=== PATIENT | male | born 1995 | race African-American/Black ===

== ENCOUNTER 2016-10-28 06:11 | Emergency (ER) | payer OTHER ==
--- NOTE | 2016-10-28 08:03 | EDDOCDS ---
Physician Documentation [facility] Name: Codie Cardoso Age: 20 yrs Sex: Male : 1995 Arrival Date: 10/28/2016 Time: 06:11 Bed I10 / 23 Private MD: Disposition: 10/28/16 07:48 Discharged to Home/Self Care. Impression: Conjunctivitis - bilateral, bacterial. - Condition is Stable. - Discharge Instructions: Conjunctivitis (Viral and Bacterial). - Prescriptions for ofloxacin 0.3 % Ophthalmic drops - instill 1 drop by OPHTHALMIC route 4 times per day for 7 days; 1 bottle. - Medication Reconciliation, Local Pharmacy Hours form. - Follow up: Keenan Roberts [facility]; When: Call to arrange an appointment; Reason: Recheck today's complaints, Continuance of care. Follow up: Saurav Mancuso; When: As needed; Reason: Recheck today's complaints. - Problem is new. - Symptoms are unchanged. - Notes: recommend recheck in 48 hrs. use drops as directed, stop other drops. return if worsening condition Historical: - Allergies: no known allergies; - Home Meds: 1. antibiotic eye drops 2. Patanol Unknown Opht Unknown - PMHx: none; - PSHx: none; - Social history: Smoking status: Patient states was never smoker of tobacco. No barriers to communication noted, The patient speaks fluent Greenlandic, Speaks appropriately for age. - Family history: Not pertinent. - : The pt / caregiver states he / she is not on anticoagulants. Home medication list is obtained from the patient. - Exposure Risk Screening:: None identified. Vital Signs: 10/28 06:21 BP 144 / 67; Pulse 46; Resp 18; Temp 97.1(O); Pulse Ox 100% on R/A; Weight 106.59 kg / kc3 234.99 lbs; Height 6 ft. (182.88 cm); Pain 5/10; 08:01 BP 138 / 85; Pulse 56; Resp 18; Temp 97.7; Pulse Ox 100% ; Pain 4/10; hs1 06:21 Body Mass Index 31.87 (106.59 kg, 182.88 cm) kc3 Visual Acuity: 07:24 Left Eye Visual acuity 20/40, ; Right Eye Visual acuity 20/50, ; Both Eyes Visual dls acuity 20/30; Without Lenses; MDM: 07:21 Visual Acuity ordered. ar2 07:52 Financial registration complete. mm15 Signatures: Shirley Austin RN RN dls Santosh Granger PA-C PA-C ar2 Zoë Vásquez RN RN hs1 Carolyn Jean mm15 Maggy Mancuso RN RN kc3 The chart was reviewed and I authenticate all verbal orders and agree with the evaluation and treatment provided.Corrections: (The following items were deleted from the chart) 06:26 06:24 Home Meds: none; kc3 kc3 MTDD
--- NOTE | 2016-10-28 08:03 | EDDOCDS ---
Nurse's Notes [facility] Name: Codie Cardoso Age: 20 yrs Sex: Male : 1995 Arrival Date: 10/28/2016 Time: 06:11 Bed I10 / 23 Private MD: Diagnosis: Conjunctivitis-bilateral, bacterial Presentation: 10/28 06:22 Presenting complaint: Patient states: seen at [place] and with pink eye in both kc3 eyes. Pt given eye drops and told to come here if not better. Mechanism of Injury: No Mechanism of Injury. Pt reports mild blurring to right eye. . Adult Sepsis Screening: The patient does not have new or worsening altered mentation. Patient's respiratory rate is less than 22. Systolic blood pressure is greater than 100. Patient has a qSOFA score of 0- Negative Sepsis Screen. Suicide/Homicide risk assessment- the patient denies having any suicidal and/or homicidal ideations and does not present with any other emotional, behavioral or mental health complaints. 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 Transition of care: patient was not received from another setting of care. 06:22 Acuity: ANTONIO Level 4 kc3 06:22 Method Of Arrival: Walkin/Carried/Asstd kc3 Triage Assessment: 06:24 General: Appears in no apparent distress, comfortable. Pain: Location: right eye and kc3 left eye Pain currently is 5 out of 10 on a pain scale. HIV screening NA for this visit Offered previously. EENT: Eyes are tearing on right eye and left eye Sclera/Cornea are reddened in right eye and left eye. Historical: - Allergies: no known allergies; - Home Meds: 1. antibiotic eye drops 2. Patanol Unknown Opht Unknown - PMHx: none; - PSHx: none; - Social history: Smoking status: Patient states was never smoker of tobacco. No barriers to communication noted, The patient speaks fluent Greenlandic, Speaks appropriately for age. - Family history: Not pertinent. - : The pt / caregiver states he / she is not on anticoagulants. Home medication list is obtained from the patient. - Exposure Risk Screening:: None identified. Screenin:09 Screening information is obtained from the patient. Fall risk: No risks identified. dls Assistance ADL's: requires no assistance with activities of daily living. Abuse/DV Screen: The patient / caregiver reports he/she is: not in a situation that causes fear, pain or injury. Nutritional screening: No deficits noted. Advance Directives: Currently, there is no health care proxy. There is no active DNR order. There is no living will. There is no Power of Cell Repairer. Advance directive information has not previously been placed in an [facility] medical record. home support is adequate. Assessment: 07:08 General: Pt brought into exam room bilateral sclera red with drainage pt states right dls worse than the left can barely open his eyes.. 07:59 General: Appears uncomfortable, eyes swollen and reddened. Patient aware of follow up hs1 plan and continuing with new eye drops. No questions asked. No needs noted. . EENT: Eyes are tearing on left eye and right eye Sclera/Cornea are reddened in right eye and left eye. Respiratory: No deficits noted. Derm: Skin is pink, warm & dry. normal. Vital Signs: 06:21 BP 144 / 67; Pulse 46; Resp 18; Temp 97.1(O); Pulse Ox 100% on R/A; Weight 106.59 kg; kc3 Height 6 ft. (182.88 cm); Pain 5/10; 08:01 BP 138 / 85; Pulse 56; Resp 18; Temp 97.7; Pulse Ox 100% ; Pain 4/10; hs1 06:21 Body Mass Index 31.87 (106.59 kg, 182.88 cm) [facility] Vitals: 06:21 Log In Time: October 28, 2016 at 06:21. [facility] Visual Acuity: 07:24 Left Eye Visual acuity 20/40, ; Right Eye Visual acuity 20/50, ; Both Eyes Visual dls acuity 20/30; Without Lenses; ED Course: 06:13 Patient visited by Michelle Hernandez Reg. hs2 06:13 Patient moved to Waiting hs2 06:24 Triage Initiated kc3 06:34 Patient moved to MTA Wait kc3 07:07 Patient moved to I10 / 23 dls 07:08 Patient visited by Shirley Austin RN. dls 07:09 The patient / caregiver is instructed regarding the plan of care and ED course. dls 07:21 Santosh Granger PA-C is PHCP. ar2 07:21 Favio Padilla MD is Attending Physician. ar2 07:21 Patient visited by Santosh Granger PA-C. ar2 07:46 Keenan Roberts [facility] is Referral Physician. ar2 07:47 Saurav Mancuso is Referral Physician. ar2 08:00 No IV's were initiated during this patient's visit. No procedures done that require hs1 assistance. Order Results: There are currently no results for this order. Outcome: 07:48 Discharge ordered by Provider. ar2 08:00 Discharge Assessment: Patient awake, alert and oriented x 3. No cognitive and/or hs1 functional deficits noted. Patient verbalized understanding of disposition instructions. patient administered narcotics - no. The following High Risk Discharge criteria are identified: None. Discharged to home ambulatory. Condition: stable. Discharge instructions given to patient, Instructed on discharge instructions, follow up and referral plans. medication usage, safety practices, Demonstrated understanding of instructions, medications, Pt was receptive of discharge instructions/ teaching. Prescriptions given X 1. No special radiology studies were completed. Property sent home with patient. 08:01 Patient left the ED. hs1 Signatures: Shirley Austin RN RN dls Santosh Granger PA-C PA-C ar2 Zoë Vásquez RN RN hs1 Maggy Mancuso RN RN kc3 Michelle Hernandez, Reg Reg hs2 Corrections: (The following items were deleted from the chart) 06:26 06:24 Home Meds: none; susanne chaves3 MTDD
--- NOTE | 2016-10-30 09:03 | EDDOCDS ---
Physician Documentation [facility] Name: Codie Cardoso Age: 20 yrs Sex: Male : 1995 Arrival Date: 10/28/2016 Time: 06:11 Bed I10 / 23 Private MD: Disposition: 10/28/16 07:48 Discharged to Home/Self Care. Impression: Conjunctivitis - bilateral, bacterial. - Condition is Stable. - Discharge Instructions: Conjunctivitis (Viral and Bacterial). - Prescriptions for ofloxacin 0.3 % Ophthalmic drops - instill 1 drop by OPHTHALMIC route 4 times per day for 7 days; 1 bottle. - Medication Reconciliation, Local Pharmacy Hours form. - Follow up: Keenan Roberts [facility]; When: Call to arrange an appointment; Reason: Recheck today's complaints, Continuance of care. Follow up: Saurav Mancuso; When: As needed; Reason: Recheck today's complaints. - Problem is new. - Symptoms are unchanged. - Notes: recommend recheck in 48 hrs. use drops as directed, stop other drops. return if worsening condition Historical: - Allergies: no known allergies; - Home Meds: 1. antibiotic eye drops 2. Patanol Unknown Opht Unknown - PMHx: none; - PSHx: none; - Social history: Smoking status: Patient states was never smoker of tobacco. No barriers to communication noted, The patient speaks fluent Kinyarwanda, Speaks appropriately for age. - Family history: Not pertinent. - : The pt / caregiver states he / she is not on anticoagulants. Home medication list is obtained from the patient. - Exposure Risk Screening:: None identified. Vital Signs: 10/28 06:21 BP 144 / 67; Pulse 46; Resp 18; Temp 97.1(O); Pulse Ox 100% on R/A; Weight 106.59 kg / kc3 234.99 lbs; Height 6 ft. (182.88 cm); Pain 5/10; 08:01 BP 138 / 85; Pulse 56; Resp 18; Temp 97.7; Pulse Ox 100% ; Pain 4/10; hs1 06:21 Body Mass Index 31.87 (106.59 kg, 182.88 cm) kc3 Visual Acuity: 07:24 Left Eye Visual acuity 20/40, ; Right Eye Visual acuity 20/50, ; Both Eyes Visual dls acuity 20/30; Without Lenses; MDM: 07:21 Visual Acuity ordered. ar2 07:52 Financial registration complete. mm15 08:17 [facility] Payment Agreement was scanned into [employer] and attached to record. mm15 Signatures: Shirley Austin RN RN dls Santosh Granger, PAMansoorC PA-C ar2 Zoë Vásquez RN RN hs1 Carolyn Jean mm15 Maggy Mancuso RN RN kc3 The chart was reviewed and I authenticate all verbal orders and agree with the evaluation and treatment provided.Corrections: (The following items were deleted from the chart) 06:26 06:24 Home Meds: none; kc3 kc3 Attachments: 08:17 [facility] Payment Agreement mm15 Chart Complete MTDD
--- NOTE | 2016-10-30 09:03 | EDDOCDS ---
Nurse's Notes [facility] Name: Codie Cardoso Age: 20 yrs Sex: Male : 1995 Arrival Date: 10/28/2016 Time: 06:11 Bed I10 / 23 Private MD: Diagnosis: Conjunctivitis-bilateral, bacterial Presentation: 10/28 06:22 Presenting complaint: Patient states: seen at [place] and with pink eye in both kc3 eyes. Pt given eye drops and told to come here if not better. Mechanism of Injury: No Mechanism of Injury. Pt reports mild blurring to right eye. . Adult Sepsis Screening: The patient does not have new or worsening altered mentation. Patient's respiratory rate is less than 22. Systolic blood pressure is greater than 100. Patient has a qSOFA score of 0- Negative Sepsis Screen. Suicide/Homicide risk assessment- the patient denies having any suicidal and/or homicidal ideations and does not present with any other emotional, behavioral or mental health complaints. 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 Transition of care: patient was not received from another setting of care. 06:22 Acuity: ANTONIO Level 4 kc3 06:22 Method Of Arrival: Walkin/Carried/Asstd kc3 Triage Assessment: 06:24 General: Appears in no apparent distress, comfortable. Pain: Location: right eye and kc3 left eye Pain currently is 5 out of 10 on a pain scale. HIV screening NA for this visit Offered previously. EENT: Eyes are tearing on right eye and left eye Sclera/Cornea are reddened in right eye and left eye. Historical: - Allergies: no known allergies; - Home Meds: 1. antibiotic eye drops 2. Patanol Unknown Opht Unknown - PMHx: none; - PSHx: none; - Social history: Smoking status: Patient states was never smoker of tobacco. No barriers to communication noted, The patient speaks fluent Israeli, Speaks appropriately for age. - Family history: Not pertinent. - : The pt / caregiver states he / she is not on anticoagulants. Home medication list is obtained from the patient. - Exposure Risk Screening:: None identified. Screenin:09 Screening information is obtained from the patient. Fall risk: No risks identified. dls Assistance ADL's: requires no assistance with activities of daily living. Abuse/DV Screen: The patient / caregiver reports he/she is: not in a situation that causes fear, pain or injury. Nutritional screening: No deficits noted. Advance Directives: Currently, there is no health care proxy. There is no active DNR order. There is no living will. There is no Power of Claim Technician. Advance directive information has not previously been placed in an [facility] medical record. home support is adequate. Assessment: 07:08 General: Pt brought into exam room bilateral sclera red with drainage pt states right dls worse than the left can barely open his eyes.. 07:59 General: Appears uncomfortable, eyes swollen and reddened. Patient aware of follow up hs1 plan and continuing with new eye drops. No questions asked. No needs noted. . EENT: Eyes are tearing on left eye and right eye Sclera/Cornea are reddened in right eye and left eye. Respiratory: No deficits noted. Derm: Skin is pink, warm & dry. normal. Vital Signs: 06:21 BP 144 / 67; Pulse 46; Resp 18; Temp 97.1(O); Pulse Ox 100% on R/A; Weight 106.59 kg; kc3 Height 6 ft. (182.88 cm); Pain 5/10; 08:01 BP 138 / 85; Pulse 56; Resp 18; Temp 97.7; Pulse Ox 100% ; Pain 4/10; hs1 06:21 Body Mass Index 31.87 (106.59 kg, 182.88 cm) [facility] Vitals: 06:21 Log In Time: October 28, 2016 at 06:21. [facility] Visual Acuity: 07:24 Left Eye Visual acuity 20/40, ; Right Eye Visual acuity 20/50, ; Both Eyes Visual dls acuity 20/30; Without Lenses; ED Course: 06:13 Patient visited by Michelle Hernandez Reg. hs2 06:13 Patient moved to Waiting hs2 06:24 Triage Initiated kc3 06:34 Patient moved to MTA Wait kc3 07:07 Patient moved to I10 / 23 dls 07:08 Patient visited by Shirley Austin RN. dls 07:09 The patient / caregiver is instructed regarding the plan of care and ED course. dls 07:21 Santosh Granger PA-C is PHCP. ar2 07:21 Favio Padilla MD is Attending Physician. ar2 07:21 Patient visited by Santosh Granger PA-C. ar2 07:46 Keenan Roberts [facility] is Referral Physician. ar2 07:47 Saurav Mancuso is Referral Physician. ar2 08:00 No IV's were initiated during this patient's visit. No procedures done that require hs1 assistance. 08:17 [facility] Payment Agreement was scanned into [employer] and attached to record. mm15 08:42 Patient name changed from Codie\S\\S\Cardoso\S\ to Codie\S\ \S\Cardoso. EDMS Order Results: There are currently no results for this order. Outcome: 07:48 Discharge ordered by Provider. ar2 08:00 Discharge Assessment: Patient awake, alert and oriented x 3. No cognitive and/or hs1 functional deficits noted. Patient verbalized understanding of disposition instructions. patient administered narcotics - no. The following High Risk Discharge criteria are identified: None. Discharged to home ambulatory. Condition: stable. Discharge instructions given to patient, Instructed on discharge instructions, follow up and referral plans. medication usage, safety practices, Demonstrated understanding of instructions, medications, Pt was receptive of discharge instructions/ teaching. Prescriptions given X 1. No special radiology studies were completed. Property sent home with patient. 08:01 Patient left the ED. hs1 Signatures: [facility] Shirley Austin RN RN dls Santosh Granger PA-C PA-C ar2 Zoë Vásquez RN RN hs1 Carolyn Jean mm15 Maggy Mancuso RN RN kc3 Michelle Hernandez, Reg Reg hs2 Corrections: (The following items were deleted from the chart) 06:26 06:24 Home Meds: none; susanne skinner Chart Complete MTDD
--- NOTE | 2016-10-30 09:03 | EDDOCDS ---
Physician Documentation [facility] Name: Codie Cardoso Age: 20 yrs Sex: Male : 1995 Arrival Date: 10/28/2016 Time: 06:11 Bed I10 / 23 Private MD: Disposition: 10/28/16 07:48 Discharged to Home/Self Care. Impression: Conjunctivitis - bilateral, bacterial. - Condition is Stable. - Discharge Instructions: Conjunctivitis (Viral and Bacterial). - Prescriptions for ofloxacin 0.3 % Ophthalmic drops - instill 1 drop by OPHTHALMIC route 4 times per day for 7 days; 1 bottle. - Medication Reconciliation, Local Pharmacy Hours form. - Follow up: Keenan Roberts [facility]; When: Call to arrange an appointment; Reason: Recheck today's complaints, Continuance of care. Follow up: Saurav Mancuso; When: As needed; Reason: Recheck today's complaints. - Problem is new. - Symptoms are unchanged. - Notes: recommend recheck in 48 hrs. use drops as directed, stop other drops. return if worsening condition Historical: - Allergies: no known allergies; - Home Meds: 1. antibiotic eye drops 2. Patanol Unknown Opht Unknown - PMHx: none; - PSHx: none; - Social history: Smoking status: Patient states was never smoker of tobacco. No barriers to communication noted, The patient speaks fluent Latvian, Speaks appropriately for age. - Family history: Not pertinent. - : The pt / caregiver states he / she is not on anticoagulants. Home medication list is obtained from the patient. - Exposure Risk Screening:: None identified. Vital Signs: 10/28 06:21 BP 144 / 67; Pulse 46; Resp 18; Temp 97.1(O); Pulse Ox 100% on R/A; Weight 106.59 kg / kc3 234.99 lbs; Height 6 ft. (182.88 cm); Pain 5/10; 08:01 BP 138 / 85; Pulse 56; Resp 18; Temp 97.7; Pulse Ox 100% ; Pain 4/10; hs1 06:21 Body Mass Index 31.87 (106.59 kg, 182.88 cm) kc3 Visual Acuity: 07:24 Left Eye Visual acuity 20/40, ; Right Eye Visual acuity 20/50, ; Both Eyes Visual dls acuity 20/30; Without Lenses; MDM: 07:21 Visual Acuity ordered. ar2 07:52 Financial registration complete. mm15 08:17 [facility] Payment Agreement was scanned into [employer] and attached to record. mm15 Signatures: Shirley Austin RN RN dls Santosh Granger, PAMansoorC PA-C ar2 Zoë Vásquez RN RN hs1 Carolyn Jean mm15 Maggy Mancuso RN RN kc3 The chart was reviewed and I authenticate all verbal orders and agree with the evaluation and treatment provided.Corrections: (The following items were deleted from the chart) 06:26 06:24 Home Meds: none; kc3 kc3 Attachments: 08:17 [facility] Payment Agreement mm15 Chart Complete MTDD
== END 2016-10-28 08:01 | disposition home or self-care (01) ==
LOC: M ED 06:11
DX: H10.33 Unspecified acute conjunctivitis, bilateral (principal)

== ENCOUNTER 2016-12-26 07:19 | Emergency (ER) | payer OTHER ==
[~2016-12-26] VITALS: Ht 182.9 cm; Wt 106.6 kg
[2016-12-26] MEDS: NS 1,000 ML IV ONE (10:09)
[2016-12-26] MEDS: KETOROLAC 30 MG/ML VIAL (J1885) IV ONE (10:10)
[2016-12-26] MEDS: ONDANSETRON 4MG/2ML VIAL (J2405) IV ONE (10:10)
[2016-12-26 10:31] LABS: BASO # 0.1 K/mm3 (0.0-0.2); EOS # 0.5 K/mm3 (0.0-0.50); EOS % 8.2 % (0.0-3.0); LARGE UNSTAINED CELL # 0.2 K/mm3 (0.0-0.4); LYMPH # 2.7 K/mm3 (1.5-6.5); LYMPH % 48.6 % (24.0-44.0); MEAN CORPUSCULAR VOLUME 89.9 fl (80.0-96.0); MONO # 0.3 K/mm3 (0.0-0.8); MONO % 5.5 % (0.0-5.0); NEUTROPHILS # 1.9 K/mm3 (1.8-7.7); NEUTROPHILS % 33.8 % (36.0-66.0); PLATELET COUNT, AUTOMATED 266 k/mm3 (150-450); RED CELL DISTRIBUTION WIDTH 11.7 % (11.5-14.5); WHITE BLOOD COUNT 5.6 K/mm3 (4.0-10.0)
[2016-12-26 10:33] LABS: ALBUMIN 4.3 GM/DL (3.2-5.2); ALBUMIN/GLOBULIN RATIO 1.05 (1.00-1.93); ALKALINE PHOSPHATASE 69 U/L (45-117); ALT/SGPT 26 U/L (12-78); ANION GAP 7 MEQ/L (8-16); AST/SGOT 24 U/L (15-37); BILIRUBIN,TOTAL 0.5 MG/DL (0.2-1.0); BLOOD UREA NITROGEN 15 MG/DL (7-18); CARBON DIOXIDE LEVEL 28 MEQ/L (21-32); CHLORIDE LEVEL 104 MEQ/L (98-107); CREATININE FOR GFR 1.06 MG/DL (0.70-1.30); GLOMERULAR FILTRATION RATE > 60.0 (>60); GLUCOSE, FASTING 85 MG/DL (70-105); POTASSIUM SERUM 4.3 MEQ/L (3.5-5.1); SODIUM LEVEL 139 MEQ/L (136-145); TOTAL PROTEIN 8.4 GM/DL (6.4-8.2)
[2016-12-26 10:52] LABS: MEAN CORPUSCULAR HGB CONC 36.4 g/dl (32.0-36.5)
[2016-12-26] MEDS ORDERED: ZOFR4TAB3 PO (11:32)
[2016-12-26] MEDS ORDERED: KETO10TAB PO (11:32)
[2016-12-26 11:48] VITALS: BP 125/71
--- NOTE | 2016-12-26 12:51 | REP ---
REASON FOR EXAM: Flank pain. COMPARISON: None. The lung bases are clear. Limited aeration of the solid intraabdominal organs and gallbladder show no gross abnormalities. There are no choleliths. Limited evaluation of the pancreas and adrenal glands show no gross abnormalities. There is no nephroureterolithiasis, hydronephrosis, or hydroureter. There are no urinary bladder calcifications. There is a single left hemipelvic phlebolith. No free fluid or free air is seen in the abdomen or pelvis. The intrapelvic and intraabdominal bowel loops and their mesenteries, although seen in a limited fashion, appear to be within normal limits. Bone window technique throughout the exam show the osseous structures to be within normal limits. IMPRESSION: CT findings, as described above, are within normal limits. Signed by Stewart Lanza DO 12/26/2016 02:24 P
== END 2016-12-26 11:52 | disposition home or self-care (01) ==
LOC: M ED 09:37
DX: R10.9 Unspecified abdominal pain (principal); R11.0 Nausea
CPT/HCPCS: 36415; 74176; 80053; 81001; 83690; 85025; 87086; 96374; 96375; 99283; J1885; J2405

== ENCOUNTER 2017-01-01 05:03 | Emergency (ER) | payer OTHER ==
[~2017-01-01] VITALS: Ht 182.9 cm; Wt 108.9 kg
[~2017-01-01 05:03] MED LIST: KETO10TAB PO; ZOFR4TAB3 PO
[2017-01-01 05:08] VITALS: BP 160/73
[2017-01-01 06:22] LABS: BASO # 0.1 K/mm3 (0.0-0.2); BASO % 1.6 % (0.0-1.0); EOS # 0.6 K/mm3 (0.0-0.50); EOS % 10.6 % (0.0-3.0); LARGE UNSTAINED CELL # 0.1 K/mm3 (0.0-0.4); LARGE UNSTAINED CELL % 2.4 % (0.0-4.0); LYMPH # 2.4 K/mm3 (1.5-6.5); LYMPH % 42.3 % (24.0-44.0); MEAN CORPUSCULAR HEMOGLOBIN 31.9 pg (27.0-33.0); MEAN CORPUSCULAR HGB CONC 35.8 g/dl (32.0-36.5); MEAN CORPUSCULAR VOLUME 89.3 fl (80.0-96.0); MONO # 0.4 K/mm3 (0.0-0.8); MONO % 6.4 % (0.0-5.0); NEUTROPHILS % 36.7 % (36.0-66.0); PLATELET COUNT, AUTOMATED 256 k/mm3 (150-450); RED CELL DISTRIBUTION WIDTH 11.9 % (11.5-14.5); WHITE BLOOD COUNT 5.4 K/mm3 (4.0-10.0)
[2017-01-01] MEDS ORDERED: METHOCARBAMOL 500 MG TAB PO ONE (06:30)
[2017-01-01] MEDS ORDERED: KETOROLAC 30 MG/ML VIAL (J1885) IV ONE (06:30)
[2017-01-01 06:43] LABS: ANION GAP 6 MEQ/L (8-16); BLOOD UREA NITROGEN 14 MG/DL (7-18); CARBON DIOXIDE LEVEL 26 MEQ/L (21-32); CHLORIDE LEVEL 107 MEQ/L (98-107); CREATININE FOR GFR 1.03 MG/DL (0.70-1.30); GLOMERULAR FILTRATION RATE > 60.0 (>60); GLUCOSE, FASTING 90 MG/DL (70-105); POTASSIUM SERUM 4.5 MEQ/L (3.5-5.1); SODIUM LEVEL 139 MEQ/L (136-145)
[2017-01-01] MEDS ORDERED: OXYC1TAB23 PO (06:44)
[2017-01-01] MEDS ORDERED: ROBA500T PO (06:44)
[2017-01-01] MEDS ORDERED: NAPR500T2 PO (06:44)
[2017-01-01] MEDS ORDERED: PERCOCET 5MG/325MG TAB PO ONE (06:45)
== END 2017-01-01 06:59 | disposition home or self-care (01) ==
LOC: M ED 06:10
DX: S39.012A Strain of muscle, fascia and tendon of lower back, initial encounter (principal); X58.XXXA Exposure to other specified factors, initial encounter; Y92.89 Other specified places as the place of occurrence of the external cause; Y93.89 Activity, other specified; Y99.8 Other external cause status
CPT/HCPCS: 36415; 80048; 81001; 85025; 96374; 99283; J1885

== ENCOUNTER 2017-01-07 12:35 | Emergency (ER) | payer OTHER ==
[~2017-01-07] VITALS: Ht 182.9 cm; Wt 111.1 kg
[~2017-01-07 12:35] MED LIST changes: +NAPR500T2 PO; +OXYC1TAB23 PO; +ROBA500T PO
[2017-01-07] MEDS ORDERED: ONDANSETRON 4 MG ORAL DISINTEGRATING TAB (S0181) PO ONE (13:30)
[2017-01-07] MEDS ORDERED: NORCO, ANEXSIA 5/325MG TABLET (HYDROcodone/ACETAMINOPHEN) PO ONE (13:30)
[2017-01-07 13:38] LABS: BASO # 0.1 K/mm3 (0.0-0.2); BASO % 0.9 % (0.0-1.0); EOS # 0.5 K/mm3 (0.0-0.50); EOS % 8.5 % (0.0-3.0); LARGE UNSTAINED CELL # 0.2 K/mm3 (0.0-0.4); LARGE UNSTAINED CELL % 3.7 % (0.0-4.0); LYMPH # 1.9 K/mm3 (1.5-6.5); LYMPH % 30.4 % (24.0-44.0); MEAN CORPUSCULAR HEMOGLOBIN 32.8 pg (27.0-33.0); MEAN CORPUSCULAR HGB CONC 36.3 g/dl (32.0-36.5); MEAN CORPUSCULAR VOLUME 90.5 fl (80.0-96.0); MONO # 0.4 K/mm3 (0.0-0.8); MONO % 6.3 % (0.0-5.0); NEUTROPHILS # 3.2 K/mm3 (1.8-7.7); NEUTROPHILS % 50.2 % (36.0-66.0); PLATELET COUNT, AUTOMATED 240 k/mm3 (150-450); RED CELL DISTRIBUTION WIDTH 11.9 % (11.5-14.5); WHITE BLOOD COUNT 6.3 K/mm3 (4.0-10.0)
--- NOTE | 2017-01-07 13:57 | REP ---
Right upper quadrant sonography: History: Right flank pain, right upper quadrant pain. Comparison study: Comparison CT study of the abdomen and pelvis is from December 26, 2016. Findings: Scanning through the right upper quadrant of the abdomen demonstrates a normal sized, thin-walled gallbladder without evidence of stone or polyp. Common bile duct is normal measuring 0.3 cm in greatest diameter. No focal liver lesion is seen. Liver size is normal. No pancreatic abnormality is observed. No right renal abnormality is seen. There is no evidence of ascites. The right kidney measures 11.0 x 6.5 x 6.7 cm. Impression: Negative right upper quadrant sonography. Signed by Chip Wasserman MD 01/07/2017 01:48 P
[2017-01-07 14:02] LABS: ALBUMIN 4.1 GM/DL (3.2-5.2); ALBUMIN/GLOBULIN RATIO 1.05 (1.00-1.93); ALKALINE PHOSPHATASE 69 U/L (45-117); ALT/SGPT 34 U/L (12-78); ANION GAP 5 MEQ/L (8-16); AST/SGOT 31 U/L (15-37); BILIRUBIN,DIRECT < 0.1 MG/DL (0.0-0.2); BILIRUBIN,TOTAL 0.4 MG/DL (0.2-1.0); BLOOD UREA NITROGEN 14 MG/DL (7-18); CALCIUM LEVEL 8.9 MG/DL (8.5-10.1); CARBON DIOXIDE LEVEL 30 MEQ/L (21-32); CHLORIDE LEVEL 107 MEQ/L (98-107); CREATININE FOR GFR 1.14 MG/DL (0.70-1.30); GLOMERULAR FILTRATION RATE > 60.0 (>60); GLUCOSE, FASTING 82 MG/DL (70-105); POTASSIUM SERUM 3.9 MEQ/L (3.5-5.1); SODIUM LEVEL 142 MEQ/L (136-145)
[2017-01-07 14:20] VITALS: BP 141/75
[2017-01-07] MEDS ORDERED: ZOFR4TAB3 PO (14:30)
[2017-01-07] MEDS ORDERED: ROBA500T PO (14:30)
[2017-01-07] MEDS ORDERED: IBUP600T26 PO (14:30)
== END 2017-01-07 14:42 | disposition home or self-care (01) ==
LOC: M ED 13:13
DX: S29.012A Strain of muscle and tendon of back wall of thorax, initial encounter (principal); X58.XXXA Exposure to other specified factors, initial encounter; Y92.89 Other specified places as the place of occurrence of the external cause; Y93.89 Activity, other specified; Y99.8 Other external cause status

== ENCOUNTER 2017-05-03 11:01 | Emergency (ER) | payer OTHER ==
[~2017-05-03] VITALS: Ht 182.9 cm; Wt 111.4 kg
[~2017-05-03 11:01] MED LIST changes: +IBUP-1022 PO; -NAPR500T2 PO; +NAPR500T3 PO
[2017-05-03] MEDS ORDERED: ONDANSETRON 4MG/2ML VIAL (J2405) IV ONE (11:45)
[2017-05-03] MEDS ORDERED: KETOROLAC 30 MG/ML VIAL (J1885) IV ONE (11:45)
[2017-05-03] MEDS ORDERED: NS 1,000 ML IV ONE (11:45)
[2017-05-03 12:00] LABS: BASO % 0.8 % (0.0-1.0); EOS # 0.7 K/mm3 (0.0-0.50); EOS % 12.6 % (0.0-3.0); LARGE UNSTAINED CELL # 0.1 K/mm3 (0.0-0.4); LARGE UNSTAINED CELL % 2.3 % (0.0-4.0); LYMPH # 2.7 K/mm3 (1.5-6.5); LYMPH % 45.9 % (24.0-44.0); MEAN CORPUSCULAR HEMOGLOBIN 31.3 pg (27.0-33.0); MEAN CORPUSCULAR HGB CONC 35.2 g/dl (32.0-36.5); MEAN CORPUSCULAR VOLUME 88.9 fl (80.0-96.0); MONO # 0.3 K/mm3 (0.0-0.8); MONO % 5.3 % (0.0-5.0); NEUTROPHILS # 1.9 K/mm3 (1.8-7.7); NEUTROPHILS % 33.1 % (36.0-66.0); PLATELET COUNT, AUTOMATED 262 k/mm3 (150-450); RED CELL DISTRIBUTION WIDTH 11.9 % (11.5-14.5); WHITE BLOOD COUNT 5.6 K/mm3 (4.0-10.0)
[2017-05-03 12:23] LABS: ALBUMIN 4.2 GM/DL (3.2-5.2); ALKALINE PHOSPHATASE 75 U/L (45-117); ALT/SGPT 21 U/L (12-78); ANION GAP 7 MEQ/L (8-16); AST/SGOT 14 U/L (15-37); BILIRUBIN,DIRECT 0.1 MG/DL (0.0-0.2); BILIRUBIN,TOTAL 0.5 MG/DL (0.2-1.0); BLOOD UREA NITROGEN 12 MG/DL (7-18); CALCIUM LEVEL 9.2 MG/DL (8.5-10.1); CARBON DIOXIDE LEVEL 27 MEQ/L (21-32); CHLORIDE LEVEL 107 MEQ/L (98-107); CREATININE FOR GFR 1.06 MG/DL (0.70-1.30); GLOMERULAR FILTRATION RATE > 60.0 (>60); GLUCOSE, FASTING 88 MG/DL (70-105); POTASSIUM SERUM 4.2 MEQ/L (3.5-5.1); SODIUM LEVEL 141 MEQ/L (136-145); TOTAL PROTEIN 8.4 GM/DL (6.4-8.2)
--- NOTE | 2017-05-03 12:48 | REP ---
Clinical: Right flank pain. Technique: Two supine views of the abdomen and pelvis. Findings: Bowel gas pattern is nonspecific. No obvious urinary tract calcifications are appreciated. No organomegaly. No abnormal calcifications. Skeletal structures intact. Impression: Nonspecific abdominal radiographs. Signed by Stephen Hay MD 05/03/2017 12:40 P
--- NOTE | 2017-05-03 13:02 | REP ---
Clinical: Right flank pain. Technique: Real time huang scale ultrasound examination using curved array transducer. Findings: Bilateral kidneys are normal in contour, size, echogenicity, and reniform shape without hydronephrosis, nephrolithiasis, cystic or mass lesion. Bladder is under distended but grossly normal in appearance. Right kidney measures 10.2 x 5.9 x 4.5 cm. Left kidney measures 12.1 x 5.5 x 5.97 meters. Impression: Normal renal ultrasound. Signed by Stephen Hay MD 05/03/2017 12:54 P
--- NOTE | 2017-05-03 14:45 | REP ---
Clinical: Acute right upper quadrant and right flank abdominal pain. Technique: Falcon scale ultrasound using curved array transducer. Findings: The liver and pancreas are normal in contour, size, and echogenicity without focal hepatic or pancreatic lesions identified. The gallbladder is normal without gallstones, wall thickening or pericholecystic fluid. No biliary ductal dilatation is appreciated, and the common bile duct measures 2.4 mm diameter. The right kidney is normal in reniform shape without hydronephrosis and measures 10.9 x 5.6 x 4.1 cm. No ascites. Visualized portions of the abdominal aorta normal. Impression: Normal right upper quadrant and gallbladder abdominal ultrasound. Signed by Stephen Hay MD 05/03/2017 02:36 P
[2017-05-03] MEDS ORDERED: ZOFR4TAB3 PO (14:51)
[2017-05-03 14:55] VITALS: BP 137/72
== END 2017-05-03 15:00 | disposition home or self-care (01) ==
LOC: M ED 11:01
DX: R11.2 Nausea with vomiting, unspecified (principal); R10.9 Unspecified abdominal pain
CPT/HCPCS: 74000; 76705; 76775; 80048; 80076; 81001; 85025; 96361; 96374; 96375; 99283; J1885; J2405

== ENCOUNTER 2017-06-03 07:15 | Emergency (ER) | payer OTHER ==
[~2017-06-03] VITALS: Ht 182.9 cm; Wt 110.0 kg
[2017-06-03] MEDS ORDERED: NS 1,000 ML IV ONE (08:00)
[2017-06-03] MEDS ORDERED: ONDANSETRON 4MG/2ML VIAL (J2405) IV ONE (08:00)
[2017-06-03] MEDS ORDERED: KETOROLAC 30 MG/ML VIAL (J1885) IV ONE (08:00)
--- NOTE | 2017-06-03 08:24 | REP ---
CT of the abdomen pelvis without IV and oral contrast: Comparison is 12/26/2016. The visualized lung ramires are unremarkable. The unenhanced hepatic parenchyma, gallbladder, pancreas and spleen are unremarkable. The unenhanced adrenals and kidneys are unremarkable. There is no hydronephrosis or perinephric stranding. There are no ureteral calculi. No bladder calculi. There is no bowel distension. The mesentery is unremarkable. Pelvis: The appendix has a normal appearance. There is no ascites or adenopathy. The pelvic bowel loops are unremarkable. Impression: Essentially negative CT study of the abdomen and pelvis. No significant interval change. Signed by Neil Gill MD 06/03/2017 08:15 A
[2017-06-03 08:31] LABS: BASO % 0.5 % (0.0-1.0); EOS # 0.5 10^3/uL (0.0-0.50); EOS % 7.2 % (0.0-3.0); IMMATURE GRANULOCYTE % 0.2 % (0-0); LYMPH # 2.7 10^3/uL (1.5-6.5); LYMPH % 40.9 % (24.0-44.0); MEAN CORPUSCULAR HEMOGLOBIN 30.9 pg (27.0-33.0); MEAN CORPUSCULAR HGB CONC 35.8 g/dl (32.0-36.5); MEAN CORPUSCULAR VOLUME 86.4 fl (80.0-96.0); MONO # 0.6 10^3/uL (0.0-0.8); MONO % 9.6 % (0.0-5.0); NEUTROPHILS # 2.7 10^3/uL (1.8-7.7); NEUTROPHILS % 41.6 % (36.0-66.0); PLATELET COUNT, AUTOMATED 265 10^3/uL (150-450); RED CELL DISTRIBUTION WIDTH 11.4 % (11.5-14.5); WHITE BLOOD COUNT 6.6 10^3/uL (4.0-10.0)
[2017-06-03 08:34] LABS: ADD MANUAL DIFFER NO; DIFF SLIDE NUMBER 127
[2017-06-03 09:48] LABS: ALBUMIN 4.3 GM/DL (3.2-5.2); ALKALINE PHOSPHATASE 70 U/L (45-117); ALT/SGPT 17 U/L (12-78); ANION GAP 4 MEQ/L (8-16); AST/SGOT 14 U/L (15-37); BILIRUBIN,TOTAL 0.3 MG/DL (0.2-1.0); BLOOD UREA NITROGEN 12 MG/DL (7-18); CALCIUM LEVEL 9.4 MG/DL (8.5-10.1); CARBON DIOXIDE LEVEL 30 MEQ/L (21-32); CHLORIDE LEVEL 105 MEQ/L (98-107); CREATININE FOR GFR 1.08 MG/DL (0.70-1.30); GLOMERULAR FILTRATION RATE > 60.0 (>60); GLUCOSE, FASTING 89 MG/DL (70-105); POTASSIUM SERUM 4.3 MEQ/L (3.5-5.1); SODIUM LEVEL 139 MEQ/L (136-145); TOTAL PROTEIN 8.2 GM/DL (6.4-8.2)
[2017-06-03] MEDS ORDERED: NAPR500T PO (09:57)
[2017-06-03] MEDS ORDERED: ZOFR4TAB3 PO (09:57)
[2017-06-03 10:15] VITALS: BP 116/74
== END 2017-06-03 10:18 | disposition home or self-care (01) ==
LOC: M ED 07:15
DX: R10.9 Unspecified abdominal pain (principal); R11.2 Nausea with vomiting, unspecified
CPT/HCPCS: 36415; 74176; 80053; 81001; 83690; 85025; 87086; 96361; 96374; 96375; 99283; J1885; J2405

== ENCOUNTER 2017-07-15 21:50 | Emergency (ER) | payer OTHER ==
[~2017-07-15] VITALS: Ht 182.9 cm; Wt 109.1 kg
[~2017-07-15 21:50] MED LIST changes: +NAPR500T PO
[2017-07-16] MEDS ORDERED: NORCO 5/325MG TABLET (BULK FOR ED) PO ONE (00:15)
[2017-07-16] MEDS ORDERED: NORCO, ANEXSIA 5/325MG TABLET (HYDROcodone/ACETAMINOPHEN) PO ONE (00:15)
[2017-07-16 00:46] VITALS: BP 137/69
--- NOTE | 2017-07-16 07:55 | REP ---
Clinical: Pain. Trauma. Technique: AP, lateral, bilateral oblique views of the right wrist. Findings: Carpal bones, associated joint spaces and surrounding osseous structures and soft tissues are within normal limits. Evidence for old healed boxers fracture involving the fifth metacarpal bone. No subcutaneous emphysema or radiodense foreign body. Impression: Old fifth metacarpal bone fracture. No acute fracture dislocation. Signed by Stephen Hay MD 07/16/2017 07:46 A
--- NOTE | 2017-07-16 07:57 | REP ---
Clinical: Pain. Trauma. Technique: AP, lateral, bilateral oblique views of the right hand. Findings: There is evidence for old healed boxers fracture involving the fifth metacarpal bone. Subtle irregularity at the base of the third metacarpal bone is nonspecific and acute versus old injury/fracture cannot be excluded. Correlation with mechanism of injury and point of tenderness is recommended. Remainder examination appears relatively normal. Impression: 1. Cannot exclude subtle acute versus old injury involving the base of the third metacarpal bone. Correlation is required. 2. Old boxers fracture to the fifth metacarpal bone. Signed by Stephen Hay MD 07/16/2017 07:49 A
--- NOTE | 2017-07-16 08:53 | ED PDOC ---
Post-Departure Follow-Up ft clemente carlos faxed formal report of right hand film for fu Guerda Guerra MD Jul 16, 2017 08:53
== END 2017-07-16 00:47 | disposition home or self-care (01) ==
LOC: M ED 21:50
DX: S60.221A Contusion of right hand, initial encounter (principal); W20.8XXA Other cause of strike by thrown, projected or falling object, initial encounter; Y92.099 Unspecified place in other non-institutional residence as the place of occurrence of the external cause; Y93.9 Activity, unspecified; Y99.9 Unspecified external cause status; Z87.81 Personal history of (healed) traumatic fracture